=== PATIENT | female | born 1985 | race Caucasian/White ===

== ENCOUNTER 2020-09-03 12:49 | Outpatient (CLI) | payer OTHER, SELFPAY | END 2020-09-03 12:50 | disposition home or self-care (01) | LOC: ANHAUDIO 12:51 | PROVIDERS: PCP Family Medicine | DX: H90.41 Sensorineural hearing loss, unilateral, right ear, with unrestricted hearing on the contralateral side (principal) | CPT/HCPCS: 92557; 92567 ==

== ENCOUNTER 2020-09-27 07:29 | Outpatient (RCR) | payer OTHER, SELFPAY | END 2020-09-27 23:59 | disposition home or self-care (01) | LOC: ANHAUDIO 07:29 | PROVIDERS: PCP Family Medicine; Visit Provider Family Medicine | DX: Z46.1 Encounter for fitting and adjustment of hearing aid (principal) | CPT/HCPCS: V5200; V5221 ==